=== PATIENT | female | born 1960 | race Caucasian/White ===

== ENCOUNTER → 2016-08-06 | Outpatient (CLI) | payer BC ==
--- NOTE | 2016-08-09 11:25 | DI ---
History: Right shoulder pain. Probable impingement. Procedure: Study performed on 1.5 Jazmine magnet in axial and non-orthogonal sagittal and coronal sequ ences. Prior study: previous x-ray 03/27/15 The subscapularis muscle and tendon are slightly thickened and shows some evidence of mild tendinosis . Insertion normal. Biceps tendon intact in the groove. Gap between acromion and humeral head is about 7 mm. Values less than 10 mm can contribute to impinge ment condition. The supraspinatus tendon is markedly variable in signal intensity with an undersurface tear and near complete full-thickness tear with multiple zones of increased signal intensity. Overall, the tendon i s quite thickened. The infraspinatus tendon shows a mild degree of tendinosis. No obvious tear is yao ntified. Teres minor tendon appears normal. Impression: Advanced partial-thickness undersurface tear of the supraspinatus with advanced tendinosi s and thickening, a full-thickness tear may be present but not demonstrable on any individual image. Mild tendinosis of the infraspinatus tendon Mild tendinosis of the subscapularis tendon Etiology is due to impingement condition from the acromion.
== END ==
LOC: MRI 14:28
PROVIDERS: ATTEND Orthopaedic Surgery
DX: M25.511 Pain in right shoulder (principal); M75.41 Impingement syndrome of right shoulder
CPT/HCPCS: 73221

== ENCOUNTER → 2016-08-18 | Outpatient (CLI) | payer BC ==
--- NOTE | 2016-08-18 15:50 | EKG ---
[address] [address] Measurements Intervals [place] Rate: 74 P: 64 NE: 150 QRS: 74 QRSD: 85 T: 81 QT: 387 QTc: 414 Interpretive Statements SINUS RHYTHM Compared to ECG 06/05/2013 17:58:10 No significant changes Electronically Signed On 08-18-16 17:33:46 MST by Boni Spencer [email or web address]
== END ==
LOC: EKG 15:37
DX: Z01.810 Encounter for preprocedural cardiovascular examination (principal); M25.511 Pain in right shoulder; I25.10 Atherosclerotic heart disease of native coronary artery without angina pectoris
CPT/HCPCS: 93005; 93010

== ENCOUNTER → 2016-08-19 | Outpatient (CLI) | payer BC ==
[2016-08-19 05:49] LABS: BASOPHILS # (AUTO) 0.08 10*3/UL; BASOPHILS % (AUTO) 0.6 % (0-1); EOSINOPHILS % (AUTO) 1.4 % (0-8); HEMATOCRIT 41.5 % (37.0-47.0); IMM GRAN % (AUTO) 0.3 % (0-5); IMM GRAN# (AUTO) 0.04 10*3/UL; LYMPHOCYTES # (AUTO) 5.47 10*3/uL; LYMPHOCYTES % (AUTO) 38.2 % (10-50); MEAN CORPUSCULAR HEMOGLOBIN 32.3 PG (27-31); MEAN CORPUSCULAR HGB CONC 33.7 g/dL (33-37); MEAN PLATELET VOLUME 8.7 FL (7.4-12.2); MONOCYTES # (AUTO) 0.85 10*3/UL (0.3-0.8); MONOCYTES % (AUTO) 5.9 % (5-15); NEUTROPHILS # (AUTO) 7.69 10*3/UL; NEUTROPHILS % (AUTO) 53.6 % (50-80); RDW COEFFICIENT OF VARIATION 14.4 % (11.5-14.5); RED BLOOD COUNT 4.34 10^6/uL (4.20-5.40); WHITE BLOOD COUNT 14.33 10^3/uL (4.8-10.8)
[2016-08-19 05:50] LABS: PLATELET MORPHOLOGY COMMENT NORMAL MORPHOLOGY (NORM)
[2016-08-19 06:00] LABS: ASPARTATE AMINO TRANSFERASE 44 IU/L (8-39); BILIRUBIN,TOTAL 0.6 mg/dL (0.3-1.2); BLOOD UREA NITROGEN 18 mg/dL (7-22); CALCIUM 10.1 mg/dL (8.7-10.7); CHLORIDE 101 meq/L (98-112); CREATININE 0.8 mg/dL (0.50-1.20); EST GLOMERULAR FILTRATION > 60 (>60 ml/min/1.73m(2)); GLUCOSE 89 mg/dL (78-110); HDL CHOLESTEROL 61 mg/dL (40-150); POTASSIUM 4.2 meq/L (3.8-5.2); SODIUM 142 meq/L (135-145); TOTAL PROTEIN 7.6 g/dL (6.1-8.0); TRIGLYCERIDES 178 mg/dL (44-200)
[2016-08-19 07:09] LABS: BILIRUBIN,URINE NEGATIVE (NEG); CLARITY,URINE Slightly Clo (CLEAR); GLUCOSE, URINE (UA) NEGATIVE (NEG); LEUKOCYTE ESTERASE ,URINE TRACE (NEG); NITRATE,URINE NEGATIVE (NEG); PH,URINE 6.5 (5.0-8.5); PROTEIN,URINE NEGATIVE (NEG); UROBILINOGEN,URINE 0.2 mg/dL (0.2)
[2016-08-19 07:12] LABS: OCCULT BLOOD,URINE TRACE (NEG)
[2016-08-19 07:13] LABS: RBC,URINE 0 /hpf
[2016-08-19 07:14] LABS: SQUAMOUS EPITHELIAL CELL,UR MANY; URINE SAMPLE TYPE CLEAN CATCH URINE
[2016-08-19 07:15] LABS: BACTERIA,URINE MANY
== END ==
LOC: LAB 05:36
DX: Z01.812 Encounter for preprocedural laboratory examination (principal); M75.41 Impingement syndrome of right shoulder; I25.10 Atherosclerotic heart disease of native coronary artery without angina pectoris; D72.829 Elevated white blood cell count, unspecified; E55.9 Vitamin D deficiency, unspecified; E78.5 Hyperlipidemia, unspecified; I10 Essential (primary) hypertension
CPT/HCPCS: 36415; 80053; 80061; 81001; 82306; 84443; 85025

== ENCOUNTER → 2016-08-30 | Outpatient (CLI) | payer BC ==
[2016-08-30 13:21] LABS: BILIRUBIN,URINE NEGATIVE (NEG); CLARITY,URINE CLEAR (CLEAR); GLUCOSE, URINE (UA) NEGATIVE (NEG); LEUKOCYTE ESTERASE ,URINE NEGATIVE (NEG); NITRATE,URINE NEGATIVE (NEG); OCCULT BLOOD,URINE NEGATIVE (NEG); PH,URINE 6.5 (5.0-8.5); PROTEIN,URINE NEGATIVE (NEG); UROBILINOGEN,URINE 0.2 mg/dL (0.2)
[2016-08-30 13:23] LABS: URINE SAMPLE TYPE CLEAN CATCH URINE
[2016-08-30 14:11] LABS: SQUAMOUS EPITHELIAL CELL,UR RARE
== END ==
LOC: LAB 12:32
DX: N39.0 Urinary tract infection, site not specified (principal); Z01.818 Encounter for other preprocedural examination; M75.101 Unspecified rotator cuff tear or rupture of right shoulder, not specified as traumatic
CPT/HCPCS: 81001; 87088

== ENCOUNTER 2016-08-31 05:48 | Day surgery (SDC) | payer BC ==
[2016-08-31] MEDS ORDERED: LIDOCAINE W/ SODIUM BICARB 0.5 ML SYR ONE (06:09)
[2016-08-31] MEDS ORDERED: ceFAZolin Inj 2gm (Premix) 50 ML IV ONE (06:09)
[2016-08-31] MEDS ORDERED: Lactated Ringers 1,000 ML PRIMARY IV ONE ×2 (06:09→09:00)
[2016-08-31] MEDS ORDERED: Ropivacaine 0.2% VIAL 20 ML ONE (06:57)
[2016-08-31] MEDS ORDERED: EPINEPHrine Inj (1:1,000) 30mg/30ml vial ONE (06:57)
[2016-08-31] MEDS ORDERED: MIDAZOLAM 5 MG/1 ML ONE (07:14)
[2016-08-31] MEDS ORDERED: fentaNYL Inj 250 MCG/5 ML VIAL ONE (07:14)
[2016-08-31] MEDS ORDERED: LIDOCAINE 2%/ EPI 1:200,000 - 20 ML VIAL ONE (07:15)
[2016-08-31] MEDS ORDERED: BUPIVACAINE 0.5% W/ EPI - 10 ML VIAL ONE (07:15)
[2016-08-31] MEDS ORDERED: DEXAMETHASONE SOD PHOSPHATE 4 MG/1 ML VIAL ONE (08:03)
[2016-08-31] MEDS ORDERED: HYDROmorphone 2 MG/1 ML ONE (08:57)
[2016-08-31] MEDS ORDERED: ONDANSETRON 4 MG/2 ML VIAL ONE (10:16)
[2016-08-31] MEDS ORDERED: ONDANSETRON 4 MG/2 ML VIAL IVP PRN (10:40)
[2016-08-31] MEDS ORDERED: NORMAL SALINE 10 ML SYRINGE FLUSH IVP PRN (10:40)
[2016-08-31] MEDS ORDERED: MORPHINE SULFATE 2 MG/1 ML IVP PRN (10:40)
[2016-08-31] MEDS ORDERED: HYDROcodone-APAP 7.5 MG-325 MG TABLET PO PRN (10:40)
[2016-08-31] MEDS ORDERED: Lactated Ringers 1,000 ML PRIMARY IV SCH (10:45)
--- NOTE | 2016-08-31 11:04 | CRNA.PROCE ---
Nerve Block Documentation - - Safety Measures: Time Out Taken, Site Verified - - Type of Nerve Block Used: Right Interscalene Block Position for Nerve Block: Supine Moniters Used During Block: EKG, SPO2, NIBP Oxygen Sumpplented: Yes Sedation Used - Enter Amount in Comment Field: Midazolam (mg): Yes (3mg iv), Fentanyl (mcg): Yes (150mcg iv) Skin Prep Used: ChloroPrep Technique: Nerve Stimulator Nerve Block Needle Used: 40 mm ProBlk II Stimulation Hz: 1.0 Stimulation Staring mA: 1.2 Stimulation Ending mA: 0.4 Local Anesthetic - Enter Amt in Comment Field: 0.5 % Bupivicaine with Epinephrine 1:200,000 (mL): Yes (20ml), 2 % Xylocaine with Epinephrine 1:200, 000 (mL): Yes (20ml)
[2016-08-31 13:30] VITALS: TEMP 97
[2016-08-31 13:32] VITALS: RESP 16
--- NOTE | 2016-09-01 10:52 | OPS SHOULD ---
Diagnosis : Right Rotator Cuff Repair/ELVIRA Referral Reason: Instruction in Activities of Daily Living/Shoulder Cryo Cuff O: The patient was instructed in activities of daily living including dressing and bathing as well as shoulder do's and don'ts. The patient was issued a cryo cuff for the right shoulder and instructed in its proper use and care. P: No further therapy is indicated at this time. The patient will begin outpatient physical therapy. TERRANCE
== END 2016-08-31 13:00 | disposition home or self-care (01) ==
LOC: SDSC 05:48
PROVIDERS: ATTEND Orthopaedic Surgery
DX: M75.41 Impingement syndrome of right shoulder (principal); M19.011 Primary osteoarthritis, right shoulder; M75.101 Unspecified rotator cuff tear or rupture of right shoulder, not specified as traumatic
CPT/HCPCS: 29823; 29824; 29826; 29827; 97535; J0171; J0690; J2704; J2795; J3010; J1100; J1170; J2250; J2405; J7120

== ENCOUNTER → 2017-03-02 | Outpatient (CLI) | payer BC ==
[2017-03-02 17:17] LABS: BASOPHILS # (AUTO) 0.16 10*3/UL; BASOPHILS % (AUTO) 1.3 % (0-1); EOSINOPHILS # (AUTO) 0.47 10*3/UL; EOSINOPHILS % (AUTO) 3.7 % (0-8); HEMATOCRIT 38.7 % (37.0-47.0); MEAN CORPUSCULAR HGB CONC 33.6 g/dL (33-37); MEAN CORPUSCULAR VOLUME 95.3 FL (81-99); MEAN PLATELET VOLUME 9.5 FL (7.4-12.2); MONOCYTES # (AUTO) 0.98 10*3/UL (0.3-0.8); MONOCYTES % (AUTO) 7.7 % (5-15); NEUTROPHILS # (AUTO) 6.05 10*3/UL; NEUTROPHILS % (AUTO) 47.7 % (50-80); RED BLOOD COUNT 4.06 10^6/uL (4.20-5.40)
[2017-03-02 17:37] LABS: PLATELET MORPHOLOGY COMMENT NORMAL MORPHOLOGY (NORM); RBC MORPHOLOGY COMMENT NORMAL MORPHOLOGY (NORM); WBC MORPHOLOGY COMMENT NORMAL MORPHOLOGY (NORM)
== END ==
LOC: MOB LAB 16:49
DX: D72.820 Lymphocytosis (symptomatic) (principal)
CPT/HCPCS: 85025

== ENCOUNTER → 2017-03-08 | Outpatient (CLI) | payer BC ==
--- NOTE | 2017-03-08 16:50 | DI ---
XR ANKLE COMPLETE MIN 3VW,03/08/2017 10:10 AM: Clinical History: Right ankle pain. Previous Exam: None at this facility. Findings: 3 views of the right ankle are obtained, and demonstrate a minimally displaced fracture involving the right distal fibula. Surrounding soft tissue swelling is noted. Impression: Minimally displaced avulsion fracture of the right distal fibula.
== END ==
LOC: ORTHO 10:14
PROVIDERS: ATTEND Physician Assistant
DX: M25.571 Pain in right ankle and joints of right foot (principal); S82.831D Other fracture of upper and lower end of right fibula, subsequent encounter for closed fracture with routine healing; W17.2XXA Fall into hole, initial encounter; Y93.89 Activity, other specified; Y92.838 Other recreation area as the place of occurrence of the external cause
CPT/HCPCS: 73610

== ENCOUNTER → 2017-03-15 | Outpatient (CLI) | payer BC ==
--- NOTE | 2017-03-15 17:15 | DI ---
History: Right ankle fracture Comparison: March 08, 2017 Findings: There is a fracture through the distal aspect of the lateral malleolus with 1 mm step off at exercise . The distal fragment measures roughly 0.8 x 1.4 x 0.8 cm. The nonstress mortise is normal in alignment. Impression Fractures of the distal fibula with 1 mm step off. No changes compared with March 08, 2017.
== END ==
LOC: ORTHO 13:49
PROVIDERS: ATTEND Physician Assistant
DX: S82.64XD Nondisplaced fracture of lateral malleolus of right fibula, subsequent encounter for closed fracture with routine healing (principal)
CPT/HCPCS: 73610

== ENCOUNTER → 2017-03-24 | Outpatient (CLI) | payer BC ==
--- NOTE | 2017-03-24 10:50 | DI ---
RIGHT ANKLE, 03/24/2017 9:29 AM: Clinical History: Right ankle pain. Previous Exam: 03/15/2017. 3 views are submitted. There is still mild soft tissue swelling over the lateral malleolus. A nondisp laced fracture is again visualized and has not changed at the tip of the fibula. There is a moderate to large joint effusion. Reading: There has been no change in the fracture of the distal fibula since the previous exam.
== END ==
LOC: ORTHO 09:37
PROVIDERS: ATTEND Orthopaedic Surgery
DX: M25.571 Pain in right ankle and joints of right foot (principal); S82.831D Other fracture of upper and lower end of right fibula, subsequent encounter for closed fracture with routine healing
CPT/HCPCS: 73610